=== PATIENT | female | born 1980 ===

== ENCOUNTER 2017-08-10 18:53 | Emergency (ER) | payer SELFPAY ==
[2017-08-10 18:53] VITALS: BMI 22.4
[2017-08-10 20:03] VITALS: O2SAT 100
--- NOTE | 2017-08-10 20:36 | C.PDOC ---
History Of Present Illness 37 y/o subjective fever, frontal headache, nasal congestion and dry cough x 2 days. pt reported lot of thick nasal discharge today. Denies recent travel or sick contacts Time Seen by Provider: 08/10/17 20:12 History Per: Patient History/Exam Limitations: no limitations Current Symptoms Are (Timing): Still Present Severity: Moderate Pain Scale Rating Of: 5 Past Medical History Vital Signs: Last Vital Signs Temp 98.0 F 08/10/17 21:56 Pulse 68 08/10/17 21:56 Resp 18 08/10/17 21:56 BP 110/72 08/10/17 21:56 Pulse Ox 100 08/11/17 07:18 - Medical History PMH: No Chronic Diseases Family History: States: Unknown Family Hx - Social History Hx Alcohol Use: No Hx Substance Use: No - Immunization History Hx Tetanus Toxoid Vaccination: No Hx Influenza Vaccination: No Hx Pneumococcal Vaccination: No Review Of Systems Constitutional: Positive for: Fever, Chills, Malaise ENT: Positive for: Nose Discharge, Nose Congestion, Throat Pain. Negative for: Ear Pain Cardiovascular: Positive for: Orthopnea. Negative for: Chest Pain, Palpitations Respiratory: Positive for: Cough. Negative for: Shortness of Breath, Hemoptysis Gastrointestinal: Negative for: Vomiting Skin: Negative for: Rash Physical Exam - Physical Exam Appears: Well, Non-toxic, No Acute Distress Skin: Normal Color Eye(s): bilateral: Normal Inspection, PERRL, EOMI Ear(s): Bilateral: Normal Nose: Normal, No Discharge Oral Mucosa: Moist Throat: Normal, No Erythema Neck: Normal ROM, Supple Chest: Symmetrical, No Tenderness Cardiovascular: Rhythm Regular, No Murmur Respiratory: No Normal Breath Sounds, No Accessory Muscle Use, No Rales, No Rhonchi, No Wheezing Gastrointestinal/Abdominal: Normal Exam, Bowel Sounds, Soft, No Tenderness Neurological/Psych: Oriented x3, Normal Speech Gait: Steady ED Course And Treatment O2 Sat by Pulse Oximetry: 100 Pulse Ox Interpretation: Normal Progress Note: Pt is is NAD, VSS, advised ot to follow up in clinic Disposition Counseled Patient/Family Regarding: Diagnosis, Need For Followup - Disposition Referrals: [facility] [Outside] Disposition: HOME/ ROUTINE Disposition Time: 21:43 Condition: STABLE Additional Instructions: Please follow up with PMD Take meds as directed Return to ER if worse Prescriptions: Benzonatate [Tessalon Perles] 100 mg PO TID #20 sgl Cetirizine HCl [Zyrtec] 10 mg PO DAILY #20 capsule Mometasone Furoate [Nasonex] 2 spray NS DAILY #1 bottle Instructions: Upper Respiratory Infection (ED) Forms: [employer] (Lao) Print Language: PORTUGUESE - Clinical Impression Clinical Impression: Upper respiratory infection
[2017-08-10 21:58] VITALS: BP 110/72; PULSE 68; RESP 18; TEMP 98
--- NOTE | 2017-08-11 08:57 | RAD ---
Chest x-ray two views History: Cough. Chest congestion. Comparison: None available. Findings: Biapical pleural thickening. No focal infiltrate or effusion. Heart size within normal limits. Impression: No focal infiltrate or effusion.
== END 2017-08-10 21:57 | disposition home or self-care (01) ==
LOC: C.ER 18:53
DX: J06.9 Acute upper respiratory infection, unspecified (principal)